=== PATIENT | female | born 1995 ===

== ENCOUNTER 2021-02-18 05:43 | Day surgery (SDC) | payer OTHER ==
[~2021-02-18 05:43] MED LIST: [UNRECOGNIZED DRUG - OTHER]
== END 2021-02-18 11:25 | disposition home or self-care (01) ==
LOC: CIR.AMB 05:43
PROVIDERS: ATTEND Orthopaedic Surgery Hand Surgery
DX: M67.432 Ganglion, left wrist (principal); Z20.822 Contact with and (suspected) exposure to COVID-19